=== PATIENT | male | born 1975 | race African-American/Black ===

== ENCOUNTER 2018-03-06 17:43 | Emergency (ER) | payer BC ==
[~2018-03-06] VITALS: Ht 193 cm; Wt 117.0 kg
[2018-03-06 17:49] VITALS: BP_SYST 141
--- NOTE | 2018-03-06 18:16 | NUR ---
Patient to ER bed 5 to gown for evaluation. Side rails up. Report given to Marsha DOHERTY.
--- NOTE | 2018-03-06 18:18 | NUR ---
Pt complains of a skin rash to left upper and lower forearm for about 3-4 days. Pt states he switched soaps but is unsure. Pt reported he put "gold smith" and redness had gone away. Pt denies fever, N/V. No other injuries/complaints per patient or noted.
--- NOTE | 2018-03-06 18:19 | NUR ---
Beryl MEATMAN at bedside examining patient.
[2018-03-06 18:37] VITALS: BP_SYST 141
--- NOTE | 2018-03-06 18:37 | NUR ---
Patient given written and verbal discharge instructions and verbalizes understanding. ER MD discussed with patient the results and treatment provided. Patient in stable condition. ID arm band removed. Rx of Betamethasone dipropionate given. Patient educated on pain management and to follow up with PMD. Pain Scale 0. Opportunity for questions provided and answered. Medication side effect fact sheet provided.
== END 2018-03-06 18:37 | disposition home or self-care (01) ==
LOC: SED 17:43
DX: L25.9 Unspecified contact dermatitis, unspecified cause (principal); R03.0 Elevated blood-pressure reading, without diagnosis of hypertension; E11.9 Type 2 diabetes mellitus without complications
CPT/HCPCS: 99283